=== PATIENT | female | born 1935 | race Caucasian/White ===

== ENCOUNTER → 2016-08-25 | Outpatient (CLI) | payer MEDICARE, BC ==
[~2016-08-25] MED LIST: CITR500T PO; ESTR.3 PO; GABA300C3 PO; LEVO75TA3 PO; LIPI10TA PO; NAME5TAB2 PO; TAB-TAB PO; VESI5TAB PO; VITA400C58 PO
[2016-08-25 15:42] LABS: BASOPHIL % 0.8 % (0.0-2.0); EOSINOPHIL # 0.2 TH/MM3 (0-0.4); EOSINOPHIL % 3.9 % (0.0-4.0); HEMATOCRIT 42.8 % (35.0-46.0); HEMO FLAGS DIFF FINAL; LYMPH % 22.3 % (9.0-44.0); LYMPHOCYTE # 1.1 TH/MM3 (1.0-4.8); MEAN CELL VOLUME 93.7 FL (80.0-100.0); MEAN CORPUSCULAR HEMOGLOBIN 31.4 PG (27.0-34.0); MEAN CORPUSCULAR HGB CONC 33.5 % (32.0-36.0); MONO % 10.6 % (0.0-8.0); NEUT % 62.4 % (16.0-70.0); PLATELET COUNT 217 TH/MM3 (150-450); RED BLOOD COUNT 4.57 MIL/MM3 (4.00-5.30); WHITE BLOOD COUNT 4.8 TH/MM3 (4.0-11.0)
[2016-08-25 15:48] LABS: ANION GAP 9 MEQ/L (5-15); AST (GOT) 23 U/L (15-37); BICARBONATE 23.7 MEQ/L (21.0-32.0); BLOOD UREA NITROGEN 12 MG/DL (7-18); CHLORIDE 110 MEQ/L (98-107); GLOMERULAR FILTRATION RATE 67 ML/MIN (>89); GLUCOSE,FASTING 82 MG/DL (74-99); SODIUM (NA) 143 MEQ/L (136-145)
[2016-08-25 15:58] LABS: ALKALINE PHOSPHATASE 52 U/L (45-117); ALT (GPT) 38 U/L (10-53); HDL CHOLESTEROL 69.1 MG/DL (40.0-60.0); LDL CHOLESTEROL 120 MG/DL (0-99); TOTAL BILIRUBIN ADULT 0.9 MG/DL (0.2-1.0)
== END ==
LOC: PLAB 11:19
PROVIDERS: ATTEND Family Medicine
DX: E03.9 Hypothyroidism, unspecified (principal)
CPT/HCPCS: 36415; 80053; 80061; 84443; 85025

== ENCOUNTER → 2016-11-28 | Outpatient (CLI) | payer MEDICARE, BC ==
[2016-11-28 15:56] LABS: ANION GAP 8 MEQ/L (5-15); AST (GOT) 25 U/L (15-37); BICARBONATE 25.6 MEQ/L (21.0-32.0); BLOOD UREA NITROGEN 18 MG/DL (7-18); CHLORIDE 110 MEQ/L (98-107); GLOMERULAR FILTRATION RATE 76 ML/MIN (>89); GLUCOSE,FASTING 86 MG/DL (74-99); POTASSIUM 4.2 MEQ/L (3.5-5.1); SODIUM (NA) 144 MEQ/L (136-145)
[2016-11-28 15:59] LABS: AUTOMATED NEUTROPHIL # 3.1 TH/MM3 (1.8-7.7); BASOPHIL % 0.7 % (0.0-2.0); EOSINOPHIL # 0.2 TH/MM3 (0-0.4); EOSINOPHIL % 3.7 % (0.0-4.0); HEMATOCRIT 41.9 % (35.0-46.0); HEMO FLAGS DIFF FINAL; LYMPH % 22.6 % (9.0-44.0); LYMPHOCYTE # 1.1 TH/MM3 (1.0-4.8); MEAN CELL VOLUME 92.3 FL (80.0-100.0); MEAN CORPUSCULAR HEMOGLOBIN 31.8 PG (27.0-34.0); MEAN CORPUSCULAR HGB CONC 34.4 % (32.0-36.0); MONO % 11.3 % (0.0-8.0); NEUT % 61.7 % (16.0-70.0); PLATELET COUNT 209 TH/MM3 (150-450); RED BLOOD COUNT 4.54 MIL/MM3 (4.00-5.30); RED CELL DISTRIBUTION WIDTH 13.1 % (11.6-17.2)
[2016-11-28 16:06] LABS: ALKALINE PHOSPHATASE 55 U/L (45-117); ALT (GPT) 42 U/L (10-53); HDL CHOLESTEROL 62.8 MG/DL (40.0-60.0); LDL CHOLESTEROL 123 MG/DL (0-99); TOTAL BILIRUBIN ADULT 1.1 MG/DL (0.2-1.0)
== END ==
LOC: PLAB 11:46
PROVIDERS: ATTEND Family Medicine
DX: E03.9 Hypothyroidism, unspecified (principal); I10 Essential (primary) hypertension; E78.5 Hyperlipidemia, unspecified
CPT/HCPCS: 36415; 80053; 80061; 84443; 85025

== ENCOUNTER 2017-05-28 15:04 | Emergency (ER) | payer MEDICARE, BC ==
[~2017-05-28] VITALS: Ht 165.1 cm; Wt 73.5 kg
[2017-05-28 15:10] VITALS: BP 171/74; PULSE 78; RESP 18; TEMP 98.4; O2SAT 90
[2017-05-28] MEDS ORDERED: VITA100036 PO (15:28)
[2017-05-28] MEDS ORDERED: NAME5TAB2 PO (15:28)
[2017-05-28] MEDS ORDERED: VITD400 PO (15:28)
[2017-05-28] MEDS ORDERED: MULTTAB67 PO (15:28)
[2017-05-28] MEDS ORDERED: ATOR10TA15 PO (15:28)
[2017-05-28] MEDS ORDERED: ESTR.3 PO (15:28)
[2017-05-28] MEDS ORDERED: GABA300C5 PO (15:28)
[2017-05-28] MEDS ORDERED: VESI5TAB PO (15:28)
[2017-05-28] MEDS ORDERED: LEVO75TA3 PO (15:28)
--- NOTE | 2017-05-28 15:28 | PD ---
HPI Chief Complaint: Fall Time Seen by Provider: 15:23 Travel History International Travel<30 days: No Contact w/Intl Traveler<30days: No Traveled to known affect area: No History of Present Illness HPI Patient presents with complaints of right hip pain. 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 Participating in physical therapy for the last 5 years for balance and gait training. Normally uses a walker. Yesterday she was walking across the room without her walker holding a plate in her hand when her right hip didn't feel right. She fell to her knees. Denies any head trauma or loss of consciousness. Denies syncope. Reports pain on weightbearing now. PFSH Past Medical History Arthritis: Yes Depression: Yes (OCASSIONAL) Cancer: No Cardiovascular Problems: No High Cholesterol: Yes Diabetes: No Diminished Hearing: No Endocrine: Yes Genitourinary: Yes (INCONTINENCE) Hepatitis: No Hiatal Hernia: No Hypertension: Yes Immune Disorder: No Implanted Vascular Access Dvce: Yes Musculoskeletal: Yes (ARTHRITIS, SP. STENOSIS) Neurologic: Yes (VERTIGO, neuropathy pain) Psychiatric: Yes (CLAUSTRAPHOBIA, PANIC ATTACKS) Reproductive: No Respiratory: No Immunizations Current: Yes Thyroid Disease: Yes (HYPOTHYROID) ?: Not Menopausal: Yes Past Surgical History AICD: No Eye Surgery: Yes (RIGHT CATARACT EXT.) Genitourinary Surgery: Yes (FAILED BLADDER SUSP. (X2)) Gynecologic Surgery: Yes (HYSTERECTOMY) Hysterectomy: Yes (APPOX 20 YEARS AGO) Joint Replacement: Yes (bilat hip ) Oral Surgery: Yes (T & A) Pacemaker: No Tonsillectomy: Yes Tympanostomy Tube: Yes Other Surgery: Yes Social History Alcohol Use: Yes (occas. wine once a week) Tobacco Use: No Substance Use: No Allergies-Medications (Allergen,Severity, Reaction): Coded Allergies: adhesive (Unverified Allergy, Severe, SWELL AND BLISTER SKIN, 05/28/17) venom-honey bee (Unverified Allergy, Severe, 05/28/17) insect venom (Unverified Allergy, Intermediate, 05/28/17) Reported Meds & Prescriptions Reported Meds & Active Scripts Active Reported Multiple Vitamin 1 Tab 1 Tab PO DAILY Vesicare (Solifenacin) 5 Mg Tab 5 Mg PO DAILY Namenda (Memantine) 5 Mg Tab 5 Mg PO BID Levothyroxine (Levothyroxine Sodium) 75 Mcg Tab 75 Mcg PO DAILY Gabapentin 300 Mg Cap 300 Mg PO HS Premarin (Estrogens Conjugated) 0.3 Mg Tab 0.3 Mg PO DAILY Vitamin D3 (Cholecalciferol) 1,000 Unit Cap Unknown Dose PO DAILY Atorvastatin (Atorvastatin Calcium) 10 Mg Tab 10 Mg PO HS Review of Systems General / Constitutional: No: Fever Eyes: No: Visual changes HENT: No: Headaches Cardiovascular: No: Chest Pain or Discomfort Respiratory: No: Shortness of Breath Gastrointestinal: No: Abdominal Pain Genitourinary: No: Dysuria Musculoskeletal: No: Pain Skin: No Rash Neurologic: No: Weakness Psychiatric: No: Depression Endocrine: No: Polydipsia Hematologic/Lymphatic: No: Easy Bruising Physical Exam Narrative GENERAL: Well-nourished, well-developed patient. SKIN: Focused skin assessment warm/dry. HEAD: Normocephalic. EYES: No scleral icterus. No injection or drainage. NECK: Supple, trachea midline. No JVD or lymphadenopathy. CARDIOVASCULAR: Regular rate and rhythm without murmurs, gallops, or rubs. RESPIRATORY: Breath sounds equal bilaterally. No accessory muscle use. GASTROINTESTINAL: Abdomen soft, non-tender, nondistended. MUSCULOSKELETAL: No cyanosis, or edema. BACK: Nontender without obvious deformity. No CVA tenderness. Examination of the right hip reveals discomfort on flexion extension internal and external rotation, no ecchymosis or swelling noted about the hip Data Data Last Documented VS Vital Signs Date Time Temp Pulse Resp B/P (MAP) Pulse Ox O2 Delivery O2 Flow Rate FiO2 05/28/17 16:39 05/28/17 16:15 63 18 97 Room Air 05/28/17 15:10 98.4 Orders Orders Hip, Uni(Ap&Lat) W Ap Pelvis (05/28/17 ) Acetaminophen (Tylenol) (05/28/17 16:30) MDM Medical Decision Making Medical Screen Exam Complete: Yes Emergency Medical Condition: Yes Differential Diagnosis Hip strain, hip fracture, hip contusion, inguinal strain Narrative Course Assessment and plan discussed with patient at bedside. Physician Communication Physician Communication Case discussed and care transferred to Bebo Carver MD May 28, 2017 15:27
--- NOTE | 2017-05-28 16:10 | RADRPT ---
EXAM DATE/TIME: 05/28/2017 15:41 [facility] COMPARISON: HIP RIGHT (AP&LAT 2/3VWS) W AP PELVIS, May 04, 2016, 14:11. INDICATIONS : Fell several days ago, increasing right hip area pain MEDICAL HISTORY : Pelvis fracture, bilateral hip fractures SURGICAL HISTORY : Bilateral hip replacements ENCOUNTER: Initial ACUITY: 4 - 6 days PAIN SCORE: 10/10 LOCATION: Right hip FINDINGS: AP view of the pelvis demonstrates bilateral total hip arthroplasties. The bone density is decreased. The hardware is intact bilaterally, without fracture or dislocation. CONCLUSION: No acute disease. Edenilson Wolfe MD on May 28, 2017 at 16:09 Board Certified Radiologist. This report was verified electronically.
[2017-05-28 16:15] VITALS: BP 170/90; PULSE 63; RESP 18; O2SAT 97
--- NOTE | 2017-05-28 16:20 | PD ---
Physical Exam Date Seen by Provider: May 28, 2017 Time Seen by Provider: 16:18 Narrative This 81-year-old female had a fall on Monday and seen initially by Dr. Alas who ordered the patient is having bilateral total hip arthroplasties. Data Data Last Documented VS Vital Signs Date Time Temp Pulse Resp B/P (MAP) Pulse Ox O2 Delivery O2 Flow Rate FiO2 05/28/17 16:15 63 18 170/90 (116) 97 Room Air 05/28/17 15:10 98.4 Orders Orders Hip, Uni(Ap&Lat) W Ap Pelvis (05/28/17 ) Acetaminophen (Tylenol) (05/28/17 16:30) MDM Medical Record Reviewed: Yes Supervised Visit with DENNY: No Differential Diagnosis Differential includes fracture, arthroplasty loosening, fractured pelvis Narrative Course X-ray right hip with pelvis is negative Diagnosis Primary Impression: Contusion of hip Qualified Codes: S70.01XA - Contusion of right hip, initial encounter Additional Instruction: Take Tylenol for pain, follow-up with your own medical doctor Disposition: 01 DISCHARGE HOME Condition: Stable Kenneth Cardenas MD May 28, 2017 16:20
[2017-05-28] MEDS ORDERED: ACETAMINOPHEN 325 MG TAB PO ONE (16:30)
== END 2017-05-28 16:40 | disposition home or self-care (01) ==
LOC: PHED 15:04
DX: S70.01XA Contusion of right hip, initial encounter (principal); I10 Essential (primary) hypertension; E03.9 Hypothyroidism, unspecified; E78.00 Pure hypercholesterolemia, unspecified; Z96.643 Presence of artificial hip joint, bilateral; Z87.39 Personal history of other diseases of the musculoskeletal system and connective tissue; Z86.59 Personal history of other mental and behavioral disorders; Z87.448 Personal history of other diseases of urinary system; Z86.69 Personal history of other diseases of the nervous system and sense organs; W18.39XA Other fall on same level, initial encounter
CPT/HCPCS: 73502; 99283

== ENCOUNTER 2017-07-31 16:25 | Observation (INO) | payer MEDICARE, BC ==
[~2017-07-31] VITALS: Ht 152.4 cm; Wt 74.6 kg
[~2017-07-31 16:25] MED LIST changes: +ATOR10TA15 PO; +CHOL10008 PO; -CITR500T PO; -GABA300C3 PO; +GABA300C5 PO; -LIPI10TA PO; +MULTTAB67 PO; -TAB-TAB PO; -VESI5TAB PO; +VESI5TAB2 PO; -VITA400C58 PO
[2017-07-31 16:30] VITALS: BP 179/81; PULSE 63; RESP 16; TEMP 97.4; O2SAT 98
[2017-07-31] MEDS ORDERED: SODIUM CHLORIDE 0.9% FLUSH 10 ML FLUSH IVF PRN (16:45)
--- NOTE | 2017-07-31 16:49 | PD ---
HPI Chief Complaint: Dizziness Time Seen by Provider: 16:44 Travel History International Travel<30 days: No Contact w/Intl Traveler<30days: No Traveled to known affect area: No History of Present Illness HPI 81-year-old female patient presents to the ER today, had an episode of dizziness , felt like she was going to pass out, started suddenly, was having slurred speech or in the episode and felt generally weak. She denies any chest pains, shortness of breath, or any other symptoms. She denies any recent fevers, vomiting, diarrhea, or other issues. Modifying Factors: None Associated Signs & Symptoms: Near-syncope, slurred speech, weakness Risk Factors: Elderly PFSH Past Medical History Arthritis: Yes Depression: Yes (OCASSIONAL) Cancer: No Cardiovascular Problems: No High Cholesterol: Yes Diabetes: No Diminished Hearing: No Endocrine: Yes Genitourinary: Yes (INCONTINENCE) Hepatitis: No Hiatal Hernia: No Hypertension: Yes Immune Disorder: No Implanted Vascular Access Dvce: Yes Musculoskeletal: Yes (ARTHRITIS, SP. STENOSIS) Neurologic: Yes (VERTIGO, neuropathy pain) Psychiatric: Yes (CLAUSTRAPHOBIA, PANIC ATTACKS) Reproductive: No Respiratory: No Immunizations Current: Yes Thyroid Disease: Yes (HYPOTHYROID) Menopausal: Yes Past Surgical History AICD: No Eye Surgery: Yes (RIGHT CATARACT EXT.) Genitourinary Surgery: Yes (FAILED BLADDER SUSP. (X2)) Gynecologic Surgery: Yes (HYSTERECTOMY) Hysterectomy: Yes (APPOX 20 YEARS AGO) Joint Replacement: Yes (bilat hip ) Oral Surgery: Yes (T & A) Pacemaker: No Tonsillectomy: Yes Tympanostomy Tube: Yes Other Surgery: Yes Social History Alcohol Use: Yes (occas. wine once a week) Tobacco Use: No Substance Use: No Allergies-Medications (Allergen,Severity, Reaction): Coded Allergies: adhesive (Unverified Allergy, Severe, SWELL AND BLISTER SKIN, 07/31/17) venom-honey bee (Unverified Allergy, Severe, 07/31/17) insect venom (Unverified Allergy, Intermediate, 07/31/17) Reported Meds & Prescriptions Reported Meds & Active Scripts Active Reported Fiber 6 Tablet (Bran/Gum/Fib/Shilpi/Psyl/Kelp/Pec) 1,000 Mg Tablet 1 Tab PO DAILY Multiple Vitamin 1 Tab 1 Tab PO DAILY Vesicare (Solifenacin) 5 Mg Tab 5 Mg PO DAILY Namenda (Memantine) 5 Mg Tab 5 Mg PO BID Levothyroxine (Levothyroxine Sodium) 75 Mcg Tab 75 Mcg PO DAILY Gabapentin 300 Mg Cap 300 Mg PO HS Vitamin D3 (Cholecalciferol) 1,000 Unit Cap Unknown Dose PO DAILY Atorvastatin (Atorvastatin Calcium) 10 Mg Tab 10 Mg PO HS Review of Systems Except as stated in HPI: all other systems reviewed are Neg Physical Exam Narrative GENERAL: Pleasant elderly white female patient currently in no acute distress. Awake and oriented 3. SKIN: Focused skin assessment warm/dry. HEAD: Atraumatic. Normocephalic. EYES: Pupils equal and round. No scleral icterus. No injection or drainage. ENT: No nasal bleeding or discharge. Mucous membranes pink and moist. NECK: Trachea midline. No JVD. CARDIOVASCULAR: Regular rate and rhythm. No murmur appreciated. RESPIRATORY: No accessory muscle use. Clear to auscultation. Breath sounds equal bilaterally. GASTROINTESTINAL: Abdomen soft, non-tender, nondistended. Hepatic and splenic margins not palpable. MUSCULOSKELETAL: No obvious deformities. No clubbing. No cyanosis. No edema. NEUROLOGICAL: Awake and alert. No obvious cranial nerve deficits. Motor grossly within normal limits. Normal speech. No pronator drift. PSYCHIATRIC: Appropriate mood and affect; insight and judgment normal. Data Data Last Documented VS Vital Signs Date Time Temp Pulse Resp B/P (MAP) Pulse Ox O2 Delivery O2 Flow Rate FiO2 07/31/17 17:37 62 18 149/77 (101) 96 Room Air 07/31/17 16:30 97.4 Orders Orders Electrocardiogram (07/31/17 16:44) Complete Blood Count With Diff (07/31/17 16:44) Comprehensive Metabolic Panel (07/31/17 16:44) Magnesium (Mg) (07/31/17 16:44) Ckmb (Isoenzyme) Profile (07/31/17 16:44) Troponin I (07/31/17 16:44) Act Partial Throm Time (Ptt) (07/31/17 16:44) Prothrombin Time / Inr (Pt) (07/31/17 16:44) Urinalysis - C+S If Indicated (07/31/17 16:44) Chest, Single Ap (07/31/17 16:44) Ct Brain W/O Iv Contrast(Rout) (07/31/17 16:44) Ecg Monitoring (07/31/17 16:44) Iv Access Insert/Monitor (07/31/17 16:44) Oximetry (07/31/17 16:44) Sodium Chloride 0.9% Flush (Ns Flush) (07/31/17 16:45) Aspirin (Aspirin) (07/31/17 18:00) Admit Order (Ed Use Only) (07/31/17 18:14) Labs Laboratory Tests Test 07/31/17 16:45 07/31/17 17:00 Urine Color YELLOW Urine Turbidity CLEAR Urine pH 5.5 Urine Specific [place] 1.009 Urine Protein NEG mg/dL Urine Glucose (UA) NEG mg/dL Urine Ketones NEG mg/dL Urine Occult Blood NEG Urine Nitrite NEG Urine Bilirubin NEG Urine Leukocyte Esterase NEG Urine WBC 0-2 /hpf Urine Squamous Epithelial Cells 6-8 /hpf Microscopic Urinalysis Comment CULT NOT INDICATED White Blood Count 5.4 TH/MM3 Red Blood Count 4.75 MIL/MM3 Hemoglobin 14.2 GM/DL Hematocrit 42.4 % Mean Corpuscular Volume 89.3 FL Mean Corpuscular Hemoglobin 30.0 PG Mean Corpuscular Hemoglobin Concent 33.6 % Red Cell Distribution Width 12.4 % Platelet Count 213 TH/MM3 Mean Platelet Volume 9.0 FL Neutrophils (%) (Auto) 61.8 % Lymphocytes (%) (Auto) 24.6 % Monocytes (%) (Auto) 9.0 % Eosinophils (%) (Auto) 4.0 % Basophils (%) (Auto) 0.6 % Neutrophils # (Auto) 3.4 TH/MM3 Lymphocytes # (Auto) 1.3 TH/MM3 Monocytes # (Auto) 0.5 TH/MM3 Eosinophils # (Auto) 0.2 TH/MM3 Basophils # (Auto) 0.0 TH/MM3 CBC Comment DIFF FINAL Differential Comment Prothrombin Time 9.6 SEC Prothromb Time International Ratio 0.9 RATIO Activated Partial Thromboplast Time 23.2 SEC Blood Urea Nitrogen 21 MG/DL Creatinine 0.69 MG/DL Random Glucose 81 MG/DL Total Protein 7.3 GM/DL Albumin 3.6 GM/DL Calcium Level 9.4 MG/DL Magnesium Level 2.1 MG/DL Alkaline Phosphatase 72 U/L Aspartate Amino Transf (AST/SGOT) 24 U/L Alanine Aminotransferase (ALT/SGPT) 30 U/L Total Bilirubin 0.7 MG/DL Sodium Level 140 MEQ/L Potassium Level 3.9 MEQ/L Chloride Level 106 MEQ/L Carbon Dioxide Level 24.8 MEQ/L Anion Gap 9 MEQ/L Estimat Glomerular Filtration Rate 82 ML/MIN Total Creatine Kinase 44 U/L Troponin I LESS THAN 0.02 NG/ML MDM Medical Decision Making Medical Screen Exam Complete: Yes Emergency Medical Condition: Yes Medical Record Reviewed: Yes Interpretation(s) EKG shows NSR, no ST elevation or depression, and no arrhythmias. No significant T-wave inversions. Laboratory Tests Test 07/31/17 16:45 07/31/17 17:00 Urine Squamous Epithelial Cells 6-8 /hpf (0-5) Monocytes (%) (Auto) 9.0 % (0.0-8.0) Prothrombin Time 9.6 SEC (9.8-11.6) Activated Partial Thromboplast Time 23.2 SEC (24.3-30.1) Blood Urea Nitrogen 21 MG/DL (7-18) Estimat Glomerular Filtration Rate 82 ML/MIN (>89) Troponin I LESS THAN 0.02 NG/ML Last [address] 07/31/17 1644 Signed Impressions: Service Date/Time: Monday, July 31, 2017 17:02 - CONCLUSION: 1. Stable ventriculomegaly 2. No evidence of acute infarct, hemorrhage, mass or edema. Kaden Pérez MD Chest X-Ray 07/31/17 1644 Signed Impressions: Service Date/Time: Monday, July 31, 2017 16:50 - CONCLUSION: No acute disease. Kaden Pérez MD Differential Diagnosis Near-syncope, slurred speech, general weakness: Orthostasis versus dehydration versus metabolic issues versus dysrhythmias versus TIA/CVA Narrative Course CAT scan did not show any signs of acute intracranial issues. Lab work was unremarkable. Patient has no focal neurological deficits on evaluation by me in the ER. Aspirin was given. My plan would be to admit her for further evaluation of TIA. Case is discussed with Dr. Chambers for admission. Diagnosis Primary Impression: TIA (transient ischemic attack) Admitting Information Admitting Physician Requests: Admit Walter Kyle MD Jul 31, 2017 16:49
--- NOTE | 2017-07-31 17:11 | RADRPT ---
EXAM DATE/TIME: 07/31/2017 16:50 [facility] COMPARISON: No previous studies available for comparison. INDICATIONS : Weakness, near syncopal episode. MEDICAL HISTORY : Hypertension. SURGICAL HISTORY : None. ENCOUNTER: Initial ACUITY: 1 day PAIN SCORE: 0/10 LOCATION: Bilateral chest FINDINGS: A single view of the chest demonstrates the lungs to be symmetrically aerated without evidence of mas s, infiltrate or effusion. The cardiomediastinal contours are unremarkable. Osseous structures are intact. CONCLUSION: No acute disease. Kaden Pérez MD on July 31, 2017 at 17:10 Board Certified Radiologist. This report was verified electronically.
[2017-07-31 17:12] LABS: WHITE BLOOD COUNT 5.4 TH/MM3 (4.0-11.0)
[2017-07-31 17:13] LABS: AUTOMATED NEUTROPHIL # 3.4 TH/MM3 (1.8-7.7); BASOPHIL % 0.6 % (0.0-2.0); EOSINOPHIL # 0.2 TH/MM3 (0-0.4); HEMATOCRIT 42.4 % (35.0-46.0); HEMO FLAGS DIFF FINAL; LYMPH % 24.6 % (9.0-44.0); LYMPHOCYTE # 1.3 TH/MM3 (1.0-4.8); MEAN CELL VOLUME 89.3 FL (80.0-100.0); MEAN CORPUSCULAR HGB CONC 33.6 % (32.0-36.0); NEUT % 61.8 % (16.0-70.0); PLATELET COUNT 213 TH/MM3 (150-450); RED BLOOD COUNT 4.75 MIL/MM3 (4.00-5.30); RED CELL DISTRIBUTION WIDTH 12.4 % (11.6-17.2)
[2017-07-31 17:16] LABS: BLOOD, URINE NEG (NEG); GLUCOSE,URINE NEG (NEG); KETONE, URINE NEG (NEG); NITRITE,URINE NEG (NEG); PH, URINE 5.5 (5.0-8.5)
--- NOTE | 2017-07-31 17:21 | RADRPT ---
EXAM DATE/TIME: 07/31/2017 17:02 [facility] COMPARISON: CT BRAIN W/O CONTRAST, April 04, 2010, 12:45. INDICATIONS : Hypertension, dizziness and speaking difficulty. RADIATION DOSE: 55.68 CTDIvol (mGy) MEDICAL HISTORY : Hypercholesterolemia. Hypothyroidism. Hypertension. SURGICAL HISTORY : Tonsillectomy. Hysterectomy.Orthopedic surgery. ENCOUNTER: Initial ACUITY: 1 day PAIN SCALE: 0/10 LOCATION: cranial TECHNIQUE: Multiple contiguous axial images were obtained of the head. Using automated exposure control and adj ustment of the mA and/or kV according to patient size, radiation dose was kept as low as reasonably a chievable to obtain optimal diagnostic quality images. DICOM format image data is available electro nically for review and comparison. FINDINGS: CEREBRUM: Screws are enlarged but remains stable. There are no findings characteristic of an acute infarct, hem orrhage, mass or edema. POSTERIOR FOSSA: The cerebellum and brainstem are intact. The 4th ventricle is midline. The cerebellopontine angle i s unremarkable. EXTRACRANIAL: The visualized portion of the orbits is intact. SKULL: The calvaria is intact. No evidence of skull fracture. CONCLUSION: 1. Stable ventriculomegaly 2. No evidence of acute infarct, hemorrhage, mass or edema. Kaden Pérez MD on July 31, 2017 at 17:18 Board Certified Radiologist. This report was verified electronically.
[2017-07-31 17:23] LABS: CHLORIDE 106 MEQ/L (98-107); POTASSIUM 3.9 MEQ/L (3.5-5.1); SODIUM (NA) 140 MEQ/L (136-145)
[2017-07-31 17:27] LABS: ANION GAP 9 MEQ/L (5-15); BICARBONATE 24.8 MEQ/L (21.0-32.0); BLOOD UREA NITROGEN 21 MG/DL (7-18); MAGNESIUM 2.1 MG/DL (1.5-2.5)
[2017-07-31 17:29] LABS: APTT (PATIENT) 23.2 SEC (24.3-30.1); INTERNATIONAL NORMALIZED RATIO 0.9 RATIO; PROTHROMBIN TIME - PATIENT 9.6 SEC (9.8-11.6)
[2017-07-31] MEDS ORDERED: BRAN1000 PO (17:29)
[2017-07-31 17:30] LABS: ALT (GPT) 30 U/L (10-53); AST (GOT) 24 U/L (15-37); GLOMERULAR FILTRATION RATE 82 ML/MIN (>89)
[2017-07-31 17:32] LABS: TOTAL BILIRUBIN ADULT 0.7 MG/DL (0.2-1.0)
[2017-07-31 17:33] LABS: ALKALINE PHOSPHATASE 72 U/L (45-117)
[2017-07-31 17:35] VITALS: RESP 18; O2SAT 95
[2017-07-31 17:37] VITALS: BP 149/77; PULSE 62; RESP 18; O2SAT 96
[2017-07-31 17:40] LABS: URINE COLOR YELLOW (YELLW/STRAW)
[2017-07-31 17:41] LABS: COMMENT (UR) CULT NOT INDICATED; CULTURE IF INDICATED CULT NOT INDICATED; WBC, URINE 0-2 /hpf (0-5)
[2017-07-31 17:47] LABS: CREATINE KINASE 44 U/L (26-192)
[2017-07-31] MEDS ORDERED: ASPIRIN 325 MG TAB PO ONE (18:00)
[2017-07-31 18:35] VITALS: BP 167/73; PULSE 64; RESP 18; O2SAT 98
[2017-07-31 19:04] VITALS: BP 174/73; PULSE 68; RESP 16; O2SAT 98
[2017-07-31 20:00] VITALS: BP 180/80; PULSE 64; RESP 18; TEMP 98.5; O2SAT 95
[2017-07-31] MEDS ORDERED: ENALAPRILAT 1.25 MG/ML VIAL IV PUSH PRN (20:00)
[2017-07-31] MEDS: MEMANTINE HCL 5 MG TAB PO SCH (20:59)
[2017-07-31] MEDS ORDERED: GABAPENTIN 300 MG CAP PO SCH (21:00)
[2017-07-31] MEDS ORDERED: ATORVASTATIN 40 MG TAB PO SCH (21:00)
[2017-08-01] VITALS: BP 141/67; PULSE 61; RESP 16; TEMP 97.9; O2SAT 95
[2017-08-01 04:00] VITALS: BP 163/75; PULSE 69; RESP 16; TEMP 98; O2SAT 99
[2017-08-01] MEDS ORDERED: LEVOTHYROXINE SODIUM 75 MCG TAB PO SCH (06:00)
[2017-08-01 08:00] VITALS: BP 181/77; PULSE 64; RESP 14; TEMP 96; O2SAT 93; O2SAT 94
[2017-08-01 08:05] VITALS: PULSE 77
[2017-08-01] MEDS ORDERED: TOLTERODINE TARTRATE 2 MG CAP LA PO SCH (09:00)
[2017-08-01] MEDS: MEMANTINE HCL 5 MG TAB PO SCH (09:31)
--- NOTE | 2017-08-01 09:41 | HHI.HP ---
[facility] Tung Pack MD Admission Diagnosis TIA Diagnoses: (1) TIA (transient ischemic attack) Chief Complaint: Difficulty speaking Travel History International Travel<30 Days: No Contact w/Intl Traveler <30 Da: No Traveled to Known Affected Are: No History of Present Illness 81-year-old white female being admitted for suspected transient ischemic attack. Patient was in her usual state of health yesterday at her urologist's office when she experienced a sudden onset of difficulty speaking. She says her speech was slurred and that the warts cannot come out right. She says she was aware of what was going on and decided come to the emergency department. She denies any acute visual changes, difficulty swallowing with her most recent meals; no acute motor deficits in her arms or legs or any new onset numbness or tingling. She says she has chronic gait issues and that weakness will vary from 1 lower extremity to the other on the day by day basis and uses a cane in her right arm. Patient denies any changes in her acute urinary issues, has chronic urinary problems and is on medications for this. Patient does admit that she deliberately we will not take certain medications from time to time at her own discretion because she feels like "someone do more harm than benefit" but she will not do this under the care of her providers. " She does not take any aspirin on a daily basis but she does admit to taking 10 mg of Lipitor. The patient states that by the time she came to the emergency room her symptoms were almost completely resolved. Review of Systems Except as stated in HPI: all other systems reviewed are Neg Past Family Social History Past Medical History Urinary issues High blood pressure Arthritis Panic attacks, claustrophobia, spinal stenosis, vertigo Past Surgical History RIGHT CATARACT FAILED BLADDER SUSP. (X2) HYSTERECTOMY Hysterectomy Joint Replacement - bilat hip Oral Surgery: T & A Allergies: Coded Allergies: adhesive (Unverified Allergy, Severe, SWELL AND BLISTER SKIN, 07/31/17) venom-honey bee (Unverified Allergy, Severe, 07/31/17) insect venom (Unverified Allergy, Intermediate, 07/31/17) Family History Strokes and heart disease in the family Social History Denies smoking or using illicit drugs in the past. Says she lives alone Physical Exam Vital Signs Vital Signs Date Time Temp Pulse Resp B/P (MAP) Pulse Ox O2 Delivery O2 Flow Rate FiO2 08/01/17 04:00 98.0 69 16 163/75 (104) 99 08/01/17 00:00 97.9 61 16 141/67 (91) 95 07/31/17 20:42 07/31/17 20:00 98.5 64 18 180/80 (113) 95 07/31/17 19:04 68 16 174/73 (106) 98 Room Air 07/31/17 18:35 64 18 167/73 (104) 98 Room Air 07/31/17 17:37 62 18 149/77 (101) 96 Room Air 07/31/17 17:35 18 95 Room Air 07/31/17 16:30 97.4 63 16 179/81 (113) 98 Physical Exam VS: afebrile GENERAL: Elderly white female well-nourished for her age, no acute distress SKIN: Warm and dry. EYES: Pupils equal and round. No scleral icterus. No injection or drainage. ENT: No nasal bleeding or discharge. Mucous membranes pink and moist. CARDIOVASCULAR: Regular rate and rhythm. no murmurs RESPIRATORY: No accessory muscle use. Clear to auscultation. Breath sounds equal bilaterally. GASTROINTESTINAL: Abdomen soft, non-tender, nondistended. Extremities: No clubbing, cyanosis, or edema. No obvious deformities. MUSCULOSKELETAL: Extremities without clubbing, cyanosis, or edema. No obvious deformities. grossly intact ROM with 5/5 strength in upper and lower extremities proximally NEUROLOGICAL: Awake and alert. No obvious cranial nerve deficits. No facial droop nor slurred speech noted. Patellar reflexes are 2+. Intact sensation to pinprick in bilateral lower extremities as well as upper extremities and face. PSYCHIATRIC: Appropriate mood and affect; insight and judgment normal. Laboratory Laboratory Tests Test 07/31/17 16:45 07/31/17 17:00 Urine Color YELLOW Urine Turbidity CLEAR Urine pH 5.5 Urine Specific [place] 1.009 Urine Protein NEG Urine Glucose (UA) NEG Urine Ketones NEG Urine Occult Blood NEG Urine Nitrite NEG Urine Bilirubin NEG Urine Leukocyte Esterase NEG Urine WBC 0-2 Urine Squamous Epithelial Cells 6-8 Microscopic Urinalysis Comment CULT NOT INDICATED White Blood Count 5.4 Red Blood Count 4.75 Hemoglobin 14.2 Hematocrit 42.4 Mean Corpuscular Volume 89.3 Mean Corpuscular Hemoglobin 30.0 Mean Corpuscular Hemoglobin Concent 33.6 Red Cell Distribution Width 12.4 Platelet Count 213 Mean Platelet Volume 9.0 Neutrophils (%) (Auto) 61.8 Lymphocytes (%) (Auto) 24.6 Monocytes (%) (Auto) 9.0 Eosinophils (%) (Auto) 4.0 Basophils (%) (Auto) 0.6 Neutrophils # (Auto) 3.4 Lymphocytes # (Auto) 1.3 Monocytes # (Auto) 0.5 Eosinophils # (Auto) 0.2 Basophils # (Auto) 0.0 CBC Comment DIFF FINAL Differential Comment Prothrombin Time 9.6 Prothromb Time International Ratio 0.9 Activated Partial Thromboplast Time 23.2 Blood Urea Nitrogen 21 Creatinine 0.69 Random Glucose 81 Total Protein 7.3 Albumin 3.6 Calcium Level 9.4 Magnesium Level 2.1 Alkaline Phosphatase 72 Aspartate Amino Transf (AST/SGOT) 24 Alanine Aminotransferase (ALT/SGPT) 30 Total Bilirubin 0.7 Sodium Level 140 Potassium Level 3.9 Chloride Level 106 Carbon Dioxide Level 24.8 Anion Gap 9 Estimat Glomerular Filtration Rate 82 Total Creatine Kinase 44 Troponin I LESS THAN 0.02 Result Diagram: 07/31/17 1700 07/31/17 1700 Imaging Last Impressions Head CT [id number]/31/171643 Signed Impressions: Service Date/Time: Monday, July 31, 2017 17:02 - CONCLUSION: 1. Stable ventriculomegaly 2. No evidence of acute infarct, hemorrhage, mass or edema. Kaden Pérez MD Chest X-Ray [id number]/31/171643 Signed Impressions: Service Date/Time: Monday, July 31, 2017 16:50 - CONCLUSION: No acute disease. Kaden Pérez MD Caprini VTE Risk Assessment Caprini VTE Risk Assessment: Mod/High Risk (score >= 2) Caprini Risk Assessment Model Point Value = 1 Point Value = 2 Point Value = 3 Point Value = 5 Age 41-60 Minor surgery BMI > 25 kg/m2 Swollen legs Varicose veins or History of unexplained or recurrent spontaneous Oral contraceptives or hormone replacement Sepsis (< 1 month) Serious lung disease, including pneumonia (< 1 month) Abnormal pulmonary function Acute myocardial infarction Congestive heart failure (< 1 month) History of inflammatory bowel disease Medical patient at bed rest Age 61-74 Arthroscopic surgery Major open surgery (> 45 min) Laparoscopic surgery (> 45 min) Malignancy Confined to bed (> 72 hours) Immobilizing plaster cast Central venous access Age >= 75 History of VTE Family history of VTE Factor V Leiden Prothrombin [id number] Lupus anticoagulant Anticardiolipin antibodies Elevated serum homocysteine Heparin-induced thrombocytopenia Other congenital or acquired thrombophilia Stroke (< 1 month) Elective arthroplasty Hip, pelvis, or leg fracture Acute spinal cord injury (< 1 month) Prophylaxis Regimen Total Risk Factor Score Risk Level Prophylaxis Regimen 0-1 Low Early ambulation 2 Moderate Order ONE of the following: *Sequential Compression Device (SCD) *Heparin 5000 units SQ BID 3-4 Higher Order ONE of the following medications: *Heparin 5000 units SQ TID *Enoxaparin/Lovenox 40 mg SQ daily (WT < 150 kg, CrCl > 30 mL/min) *Enoxaparin/Lovenox 30 mg SQ daily (WT < 150 kg, CrCl > 10-29 mL/min) *Enoxaparin/Lovenox 30 mg SQ BID (WT < 150 kg, CrCl > 30 mL/min) AND/OR *Sequential Compression Device (SCD) 5 or more Highest Order ONE of the following medications: *Heparin 5000 units SQ TID (Preferred with Epidurals) *Enoxaparin/Lovenox 40 mg SQ daily (WT < 150 kg, CrCl > 30 mL/min) *Enoxaparin/Lovenox 30 mg SQ daily (WT < 150 kg, CrCl > 10-29 mL/min) *Enoxaparin/Lovenox 30 mg SQ BID (WT < 150 kg, CrCl > 30 mL/min) AND *Sequential Compression Device (SCD) Assessment and Plan Assessment and Plan 81-year-old white female being admitted for strokelike symptoms with possible TIA - Continue aspirin, instructed patient that we will increase her Lipitor from 10 to 40 mg - Engage in permissive hypertension - CT head is negative for acute bleed, we'll proceed with MRI, carotid ultrasounds, and echocardiogram - Speech eval and PT eval - telemetry - I independently reviewed the EKG which shows NSR urinary incontinence - home vesicare continue home synthroid, gabapentin, and namenda Lovenox Addendum: MRI, echocardiogram, carotid ultrasounds are unremarkable. Only positive findings that the patient has ventriculomegaly on her MRI which was discussed with neurosurgery; given her lack of clinical symptoms that would go with it was recommended that the patient follow-up with neurology after discharge to further address this. Patient was counseled on the importance of taking her medications including her aspirin and her increased dose of Lipitor. She felt very comfortable about going home and following up with her primary care provider, neurologist, and her physical therapy which she is currently doing as an outpatient. Patient has met maximum benefit from hospitalization and is clinically stable for discharge. Augustine Chambers MD Aug 01, 2017 09:41
[2017-08-01] MEDS ORDERED: LORazepam 2 MG/ML VIAL IV PUSH PRN (09:45)
[2017-08-01] MEDS ORDERED: ASPIRIN 81 MG CHEW TAB PO ONE (10:00)
[2017-08-01] MEDS ORDERED: ENOXAPARIN SODIUM 30 MG/0.3 ML SYRINGE SQ SCH (10:00)
--- NOTE | 2017-08-01 11:26 | RADRPT ---
EXAM DATE/TIME: 08/01/2017 10:32 [facility] COMPARISON: No previous studies available for comparison. INDICATIONS : Transient ischemic attack. MEDICAL HISTORY : Hypothyroidism. Hypercholesterolemia. Arthritis. Bilateral tinnitis. Vertigo. Neuropathy. HTN. Spinal stenosis. Panic attacks. Depression. SURGICAL HISTORY : Tonsillectomy. Hysterectomy. Adenoidectomy. Right cataract extraction. Tympanostomy tube. Right TKR . ORIF right clavicle. Bilateral hip replacements. Bladder suspension. ENCOUNTER: Initial ACUITY: 1 day PAIN SCORE: 4/10 LOCATION: Bilateral neck PEAK SYSTOLIC VELOCITIES (cm/sec): ICA/CCA RATIO: Right: 0.6 Left: 1.1 ICA: Right: 49 Left: 98 CCA: Right: 78 Left: 88 ECA: Right: 79 Left: 91 VERTEBRAL: Right: 59 antegrade Left: 42 antegrade Elevated flow velocities and ICA/CCA ratios have been found to correlate with increased degrees of vessel stenosis, calculated as percentage of diameter relative to a normal segment of distal ICA/CCA FINDINGS: RIGHT CAROTID: No significant stenosis is visualized. The waveforms are within normal limits. LEFT CAROTID: No significant stenosis is visualized. The waveforms are within normal limits. VERTEBRAL ARTERIES: Antegrade flow is seen in both vertebral arteries. MISCELLANEOUS: None. CONCLUSION: 1. Minimal bilateral carotid plaque without significant flow-limiting stenosis. 2. Antegrade vertebral artery flow bilaterally. Baoz Mckeon MD on August 01, 2017 at 11:23 Board Certified Radiologist. This report was verified electronically.
[2017-08-01 12:00] VITALS: BP 135/70; PULSE 62; RESP 12; TEMP 95.7; O2SAT 97
--- NOTE | 2017-08-01 12:45 | RADRPT ---
EXAM DATE/TIME: 08/01/2017 12:11 [facility] COMPARISON: No previous studies available for comparison. INDICATIONS : Slurred speech. Unsteady gait. MEDICAL HISTORY : Arthritis. Hypertension. SURGICAL HISTORY : Hysterectomy. Bilateral hip replacement. ENCOUNTER: Initial ACUITY: 3 day PAIN SCORE: 0/10 LOCATION: head TECHNIQUE: Multiplanar, multisequence MRI of the brain was performed without contrast. FINDINGS: CEREBRUM: Ventriculomegaly suggesting central cerebral atrophy or hydrocephalus. Clinical correlation is recomm ended. No evidence of midline shift, mass lesion, hemorrhage or acute infarction. No extraaxial flui d collections are seen. The pituitary gland and suprasellar cistern are normal in configuration. WHITE MATTER: Mild periventricular and subcortical white matter small vessel ischemic changes are noted bilaterally . POSTERIOR FOSSA: The cerebellum and brainstem are intact. The 4th ventricle is midline. The cerebellopontine angle is unremarkable. The cerebellar tonsils are normal in position. DIFFUSION IMAGING: No focal areas of restricted diffusion are seen. No evidence of acute infarction. EXTRACRANIAL: The visualized portions of the orbits and paranasal sinuses are unremarkable. CONCLUSION: 1. Ventriculomegaly suggesting central cerebral atrophy or hydrocephalus. Clinical correlation is rec ommended. 2. Mild periventricular and subcortical white matter small vessel ischemic changes bilaterally. 3. No acute infarct, acute hemorrhage, mass effect or extra-axial fluid collections. Fredy Zapien MD on August 01, 2017 at 12:41 Board Certified Radiologist. This report was verified electronically.
[2017-08-01] MEDS ORDERED: DOCUSATE SODIUM 50 MG/SENNA 8.6 MG TAB PO SCH (13:15)
--- NOTE | 2017-08-01 14:16 | EKG ---
Date Performed: 07/31/2017 Time Performed: 16:57:10 PTAGE: 81 years EKG: Sinus rhythm POSSIBLE INFERIOR INFARCT, AGE UNDETERMINED INFERIOR Q-WAVES ARE MORE PROMINENT COMPARED TO THE PRIO R TRACING. CLINICAL CORRELATION IS NEEDED. BORDERLINE ECG PREVIOUS TRACING : 01/14/2015 15.17 DOCTOR: Adiel Noble Interpretating Date/Time 08/01/2017 14:15:31
[2017-08-01 15:15] VITALS: PULSE 82
[2017-08-01] MEDS ORDERED: ASPI-516 CHEW (15:45)
[2017-08-01] MEDS ORDERED: ATOR40TA16 PO (15:45)
--- NOTE | 2017-08-01 15:47 | HHI.DCPOC ---
Discharge Care Plan Diagnosis: (1) TIA (transient ischemic attack) (2) Hypothyroidism Goals to Promote Your Health * To prevent worsening of your condition and complications * To maintain your health at the optimal level Directions to Meet Your Goals Take your medications as prescribed Follow your dietary instruction Follow activity as directed Keep your appointments as scheduled Take your immunizations and boosters as scheduled If your symptoms worsen call your PCP, if no PCP go to Urgent Care Center or Emergency Room Smoking is Dangerous to Your Health. Avoid second hand smoke Call the 24-hour hour crisis hotline for domestic abuse at Stacey Garcia Aug 01, 2017 15:47
--- NOTE | 2017-08-01 16:41 | ECHRPT ---
Indication: cva/tia CONCLUSIONS Normal left ventricular size. The left ventricular systolic function is hyperdynamic with an estimated ejection fraction in the ra nge of 65- 70%. Septal hypertrophy. Mild mitral valve regurgitation. Trace aortic valve regurgitation. There is mild tricuspid valve regurgitation. The estimated pulmonary arterial pressure is 30 mmHg. BP: / HR: Rhythm: MEASUREMENTS (Male / Female) Normal Values Technical Quality:Good 2D ECHO LV Diastolic Diameter PLAX 3.6 cm 4.2 - 5.9 / 3.9 - 5.3 cm LV Systolic Diameter PLAX 2.5 cm IVS Diastolic Thickness 2.0 cm 0.6 - 1.0 / 0.6 - 0.9 cm LVPW Diastolic Thickness 0.9 cm 0.6 - 1.0 / 0.6 - 0.9 cm LV Relative Wall Thickness 0.8 RV Internal Dim ED PLAX 2.8 cm M-MODE Aortic Root Diameter MM 3.1 cm LA Systolic Diameter MM 3.1 cm LA Ao Ratio MM 1.0 AV Cusp Separation MM 1.6 cm DOPPLER AI Peak Velocity 185.0 cm/s AI Peak Gradient 13.7 mmHg AI Pressure Half Time 750.0 ms Mitral E Point Velocity 40.5 cm/s Mitral A Point Velocity 93.3 cm/s Mitral E to A Ratio 0.4 LV E' Lateral Velocity 6.2 cm/s Mitral E to LV E' Lateral Ratio 6.5 LV E' Septal Velocity 6.7 cm/s Mitral E to LV E' Septal Ratio 6.0 TR Peak Velocity 223.0 cm/s TR Peak Gradient 19.9 mmHg Right Atrial Pressure 10.0 mmHg Pulmonary Artery Systolic Pressu 29.9 mmHg Right Ventricular Systolic Press 29.9 mmHg FINDINGS LEFT VENTRICLE Normal left ventricular size. The left ventricular systolic function is hyperdynamic with an estimated ejection fraction in the ra nge of 65- 70%. RIGHT VENTRICLE Normal right ventricular size and systolic function. LEFT ATRIUM The left atrial size is normal. RIGHT ATRIUM The right atrial size is normal. ATRIAL SEPTUM Normal atrial septal thickness without atrial level shunting by limited color doppler interrogation. AORTA The aortic root and proximal ascending aorta are normal in size on limited imaging. MITRAL VALVE Structurally normal mitral valve. Mild mitral valve regurgitation. AORTIC VALVE Trileaflet aortic valve. Trace aortic valve regurgitation. TRICUSPID VALVE Structurally normal tricuspid valve. There is mild tricuspid valve regurgitation. The estimated pulmonary arterial pressure is 29.9 mmHg. PULMONARY VALVE No pulmonary valve regurgitation or stenosis. VESSELS The inferior vena cava is normal in size. PERICARDIUM No pericardial effusion. Nikita Pringle MD, FACC (Electronically Signed) Final Date:01 August 2017 16:38
== END 2017-08-01 18:03 | disposition home or self-care (01) ==
LOC: PHED 16:25 → PHEDA 18:14 → PH3A 20:39
PROVIDERS: ADMIT Hospitalist; ATTEND Hospitalist
DX: G45.9 Transient cerebral ischemic attack, unspecified (principal); I10 Essential (primary) hypertension; G93.89 Other specified disorders of brain; R32 Unspecified urinary incontinence; E78.00 Pure hypercholesterolemia, unspecified; E03.9 Hypothyroidism, unspecified; G62.9 Polyneuropathy, unspecified; M48.00 Spinal stenosis, site unspecified; F32.9 Major depressive disorder, single episode, unspecified; F41.0 Panic disorder [episodic paroxysmal anxiety]; F40.240 Claustrophobia; M19.90 Unspecified osteoarthritis, unspecified site; Z96.643 Presence of artificial hip joint, bilateral; Z96.651 Presence of right artificial knee joint
CPT/HCPCS: 70450; 70551; 71010; 80053; 81001; 82550; 83735; 84484; 85025; 85610; 85730; 92610; 93005; 93306; 93880; 97162; 99285; G0378; G8987; G8988; G8996; G8997; G8998; J1650; J2060

== ENCOUNTER 2017-12-27 14:00 | Emergency (ER) | payer MEDICARE, BC ==
[~2017-12-27 14:00] MED LIST changes: +ASPI-516 CHEW; +ATOR40TA16 PO; +BRAN1000 PO; -ESTR.3 PO
[2017-12-27 14:23] VITALS: BP 140/76; PULSE 105; RESP 20; TEMP 97.2; O2SAT 95
--- NOTE | 2017-12-27 14:43 | PD ---
HPI Chief Complaint: Respiratory Symptoms Time Seen by Provider: 14:17 Travel History International Travel<30 days: No Contact w/Intl Traveler<30days: No Traveled to known affect area: No History of Present Illness HPI 72-year-old female says she was short of breath today. He was at home doing housework when it started. She still feels a little bit short of breath. She denies any history of lung disease. He does say she was feeling panicky. She thought she almost passed out. She did not have any chest pain. She has no history of hypertension or diabetes. She does admit that she is somewhat forgetful. She denies any fever or chills. She has not been coughing. She has no history of deep vein thrombosis or other blood clotting disorder. She was admitted to the hospital in July 2017. She says at that time she lost her speech for about 20 minutes. She was worked up for TIA. At that time Dr. terry also evaluated her. She says she had a nuclear stress test with him which she says put her at low risk. She does take a baby aspirin daily. She has never smoked. She says she still feels a little bit short of breath. She says she gets occasional ankle edema PFSH Past Medical History Arthritis: Yes Depression: Yes (OCASSIONAL) Cancer: No Cardiovascular Problems: No High Cholesterol: Yes Diabetes: No Diminished Hearing: No Endocrine: Yes Genitourinary: Yes (INCONTINENCE) Hepatitis: No Hiatal Hernia: No Hypertension: Yes Immune Disorder: No Implanted Vascular Access Dvce: Yes Musculoskeletal: Yes (ARTHRITIS, SP. STENOSIS) Neurologic: Yes (VERTIGO, neuropathy pain) Psychiatric: Yes (CLAUSTRAPHOBIA, PANIC ATTACKS) Reproductive: No Respiratory: No Immunizations Current: Yes Thyroid Disease: Yes (HYPOTHYROID) Menopausal: Yes Past Surgical History AICD: No Eye Surgery: Yes (RIGHT CATARACT EXT.) Genitourinary Surgery: Yes (FAILED BLADDER SUSP. (X2)) Gynecologic Surgery: Yes (HYSTERECTOMY) Hysterectomy: Yes (APPOX 20 YEARS AGO) Joint Replacement: Yes (bilat hip ) Oral Surgery: Yes (T & A) Pacemaker: No Tonsillectomy: Yes Tympanostomy Tube: Yes Other Surgery: Yes Social History Alcohol Use: Yes (occas. wine once a week) Tobacco Use: No Substance Use: No Allergies-Medications (Allergen,Severity, Reaction): Coded Allergies: adhesive (Unverified Allergy, Severe, SWELL AND BLISTER SKIN, 12/27/17) venom-honey bee (Unverified Allergy, Severe, 12/27/17) insect venom (Unverified Allergy, Intermediate, 12/27/17) Reported Meds & Prescriptions Reported Meds & Active Scripts Active Aspirin 81 Mg Chew 81 Mg CHEW DAILY 30 Days Reported Fiber 6 Tablet (Bran/Gum/Fib/Shilpi/Psyl/Kelp/Pec) 1,000 Mg Tablet 1 Tab PO DAILY Multiple Vitamin 1 Tab 1 Tab PO DAILY Vesicare (Solifenacin) 5 Mg Tab 5 Mg PO DAILY Namenda (Memantine) 5 Mg Tab 5 Mg PO BID Levothyroxine (Levothyroxine Sodium) 75 Mcg Tab 75 Mcg PO DAILY Gabapentin 300 Mg Cap 300 Mg PO HS Vitamin D3 (Cholecalciferol) 1,000 Unit Cap Unknown Dose PO DAILY Atorvastatin (Atorvastatin Calcium) 10 Mg Tab 10 Mg PO HS Review of Systems General / Constitutional: No: Fever, Chills Eyes: No: Diploplia, Blurred Vision HENT: No: Headaches, Vertigo Cardiovascular: No: Chest Pain or Discomfort, Palpitations Respiratory: Positive: Shortness of Breath, No: Cough Gastrointestinal: No: Vomiting, Diarrhea Genitourinary: No: Urgency, Frequency Musculoskeletal: No: Myalgias, Arthralgias Skin: No Rash, No Itching Neurologic: No: Weakness Endocrine: No: Heat Intolerance Hematologic/Lymphatic: No: Easy Bruising Physical Exam Narrative GENERAL: Well-developed female pulse rate is about 100 her O2 sat runs at 92-93% SKIN: Focused skin assessment warm/dry. HEAD: Atraumatic. Normocephalic. EYES: Pupils equal and round. No scleral icterus. No injection or drainage. ENT: No nasal bleeding or discharge. Mucous membranes pink and moist. NECK: Trachea midline. No JVD. CARDIOVASCULAR: Regular rate and rhythm. No murmur appreciated. RESPIRATORY: No accessory muscle use. Clear to auscultation. Breath sounds equal bilaterally. GASTROINTESTINAL: Abdomen soft, non-tender, nondistended. Hepatic and splenic margins not palpable. MUSCULOSKELETAL: No obvious deformities. No clubbing. No cyanosis. No edema. NEUROLOGICAL: Awake and alert. No obvious cranial nerve deficits. Motor grossly within normal limits. Normal speech. PSYCHIATRIC: Appropriate mood and affect; insight and judgment normal. Data Data Last Documented VS Vital Signs Date Time Temp Pulse Resp B/P (MAP) Pulse Ox O2 Delivery O2 Flow Rate FiO2 12/27/17 17:28 70 20 123/62 (82) 99 12/27/17 14:23 97.2 Orders Orders Electrocardiogram (12/27/17 14:37) Complete Blood Count With Diff (12/27/17 14:37) Comprehensive Metabolic Panel (12/27/17 14:37) Troponin I (12/27/17 14:37) B-Type Natriuretic Peptide (12/27/17 14:37) D-Dimer (12/27/17 14:37) Chest, Single Ap (12/27/17 14:37) Ct Pulmonary Angiogram (12/27/17 15:36) Iohexol 350 Inj (Omnipaque 350 Inj) (12/27/17 16:48) Ed Discharge Order (12/27/17 17:19) Labs Laboratory Tests Test 12/27/17 14:48 White Blood Count 6.6 TH/MM3 Red Blood Count 4.49 MIL/MM3 Hemoglobin 13.9 GM/DL Hematocrit 40.3 % Mean Corpuscular Volume 89.9 FL Mean Corpuscular Hemoglobin 31.0 PG Mean Corpuscular Hemoglobin Concent 34.5 % Red Cell Distribution Width 13.0 % Platelet Count 256 TH/MM3 Mean Platelet Volume 8.6 FL Neutrophils (%) (Auto) 73.2 % Lymphocytes (%) (Auto) 17.3 % Monocytes (%) (Auto) 6.2 % Eosinophils (%) (Auto) 2.9 % Basophils (%) (Auto) 0.4 % Neutrophils # (Auto) 4.9 TH/MM3 Lymphocytes # (Auto) 1.1 TH/MM3 Monocytes # (Auto) 0.4 TH/MM3 Eosinophils # (Auto) 0.2 TH/MM3 Basophils # (Auto) 0.0 TH/MM3 CBC Comment DIFF FINAL Differential Comment D-Dimer Quantitative (PE/DVT) 0.54 MG/L FEU Blood Urea Nitrogen 23 MG/DL Creatinine 0.79 MG/DL Random Glucose 157 MG/DL Total Protein 7.0 GM/DL Albumin 3.5 GM/DL Calcium Level 9.3 MG/DL Alkaline Phosphatase 67 U/L Aspartate Amino Transf (AST/SGOT) 20 U/L Alanine Aminotransferase (ALT/SGPT) 30 U/L Total Bilirubin 0.9 MG/DL Sodium Level 142 MEQ/L Potassium Level 3.7 MEQ/L Chloride Level 111 MEQ/L Carbon Dioxide Level 23.7 MEQ/L Anion Gap 7 MEQ/L Estimat Glomerular Filtration Rate 70 ML/MIN Troponin I LESS THAN 0.02 NG/ML B-Type Natriuretic Peptide 23 PG/ML MDM Medical Decision Making Medical Screen Exam Complete: Yes Emergency Medical Condition: Yes Medical Record Reviewed: Yes Differential Diagnosis Differential includes pneumonia, CHF, anxiety, PE Narrative Course Lab work and x-rays have been ordered. Disposition will be determined by oncoming physician Diagnosis Primary Impression: Dyspnea Kenneth Cardenas MD December 27, 2017 14:43
[2017-12-27 14:56] LABS: AUTOMATED NEUTROPHIL # 4.9 TH/MM3 (1.8-7.7); BASOPHIL % 0.4 % (0.0-2.0); EOSINOPHIL # 0.2 TH/MM3 (0-0.4); EOSINOPHIL % 2.9 % (0.0-4.0); HEMATOCRIT 40.3 % (35.0-46.0); HEMOGLOBIN 13.9 GM/DL (11.6-15.3); LYMPH % 17.3 % (9.0-44.0); LYMPHOCYTE # 1.1 TH/MM3 (1.0-4.8); MEAN CELL VOLUME 89.9 FL (80.0-100.0); MEAN CORPUSCULAR HGB CONC 34.5 % (32.0-36.0); MEAN PLATELET VOLUME 8.6 FL (7.0-11.0); MONO % 6.2 % (0.0-8.0); MONOCYTE # 0.4 TH/MM3 (0-0.9); NEUT % 73.2 % (16.0-70.0); PLATELET COUNT 256 TH/MM3 (150-450); RED BLOOD COUNT 4.49 MIL/MM3 (4.00-5.30); WHITE BLOOD COUNT 6.6 TH/MM3 (4.0-11.0)
--- NOTE | 2017-12-27 15:06 | RADRPT ---
EXAM DATE/TIME: 12/27/2017 14:48 [facility] COMPARISON: CHEST SINGLE AP, July 31, 2017, 16:50. INDICATIONS : Short of breath MEDICAL HISTORY : Arthritis. Hypertension. SURGICAL HISTORY : Hysterectomy. Bilateral hip replacement ENCOUNTER: Initial ACUITY: 1 day PAIN SCORE: 0/10 LOCATION: chest FINDINGS: A single view of the chest demonstrates the lungs to be symmetrically aerated without evidence of mas s, infiltrate or effusion. The cardiomediastinal contours are unremarkable. Osseous structures are intact. CONCLUSION: No acute disease. Julian Morfin MD FACR on December 27, 2017 at 15:04 Board Certified Radiologist. This report was verified electronically.
[2017-12-27 15:19] LABS: CHLORIDE 111 MEQ/L (98-107); SODIUM (NA) 142 MEQ/L (136-145)
[2017-12-27 15:23] LABS: ALBUMIN 3.5 GM/DL (3.4-5.0); BICARBONATE 23.7 MEQ/L (21.0-32.0); BLOOD UREA NITROGEN 23 MG/DL (7-18); CALCIUM 9.3 MG/DL (8.5-10.1); GLUCOSE,RANDOM 157 MG/DL (74-106)
[2017-12-27 15:26] LABS: ALT (GPT) 30 U/L (10-53); AST (GOT) 20 U/L (15-37); CREATININE 0.79 MG/DL (0.50-1.00); GLOMERULAR FILTRATION RATE 70 ML/MIN (>89)
[2017-12-27 15:28] LABS: TOTAL BILIRUBIN ADULT 0.9 MG/DL (0.2-1.0)
[2017-12-27 15:29] LABS: ALKALINE PHOSPHATASE 67 U/L (45-117)
[2017-12-27 15:31] LABS: TROPONIN I LESS THAN 0.02 NG/ML (0.02-0.05)
[2017-12-27 15:41] VITALS: BP 123/62; O2SAT 92
--- NOTE | 2017-12-27 15:52 | PD ---
Physical Exam Date Seen by Provider: December 27, 2017 Narrative Care was assumed at 3 PM pending evaluation for dyspnea. The patient states that she is currently not short of breath. Data Data Last Documented VS Vital Signs Date Time Temp Pulse Resp B/P (MAP) Pulse Ox O2 Delivery O2 Flow Rate FiO2 12/27/17 15:41 83 20 123/62 (82) 92 12/27/17 14:23 97.2 Orders Orders Electrocardiogram (12/27/17 14:37) Complete Blood Count With Diff (12/27/17 14:37) Comprehensive Metabolic Panel (12/27/17 14:37) Troponin I (12/27/17 14:37) B-Type Natriuretic Peptide (12/27/17 14:37) D-Dimer (12/27/17 14:37) Chest, Single Ap (12/27/17 14:37) Ct Pulmonary Angiogram (12/27/17 15:36) Iohexol 350 Inj (Omnipaque 350 Inj) (12/27/17 16:48) Labs Laboratory Tests Test 12/27/17 14:48 White Blood Count 6.6 TH/MM3 Red Blood Count 4.49 MIL/MM3 Hemoglobin 13.9 GM/DL Hematocrit 40.3 % Mean Corpuscular Volume 89.9 FL Mean Corpuscular Hemoglobin 31.0 PG Mean Corpuscular Hemoglobin Concent 34.5 % Red Cell Distribution Width 13.0 % Platelet Count 256 TH/MM3 Mean Platelet Volume 8.6 FL Neutrophils (%) (Auto) 73.2 % Lymphocytes (%) (Auto) 17.3 % Monocytes (%) (Auto) 6.2 % Eosinophils (%) (Auto) 2.9 % Basophils (%) (Auto) 0.4 % Neutrophils # (Auto) 4.9 TH/MM3 Lymphocytes # (Auto) 1.1 TH/MM3 Monocytes # (Auto) 0.4 TH/MM3 Eosinophils # (Auto) 0.2 TH/MM3 Basophils # (Auto) 0.0 TH/MM3 CBC Comment DIFF FINAL Differential Comment D-Dimer Quantitative (PE/DVT) 0.54 MG/L FEU Blood Urea Nitrogen 23 MG/DL Creatinine 0.79 MG/DL Random Glucose 157 MG/DL Total Protein 7.0 GM/DL Albumin 3.5 GM/DL Calcium Level 9.3 MG/DL Alkaline Phosphatase 67 U/L Aspartate Amino Transf (AST/SGOT) 20 U/L Alanine Aminotransferase (ALT/SGPT) 30 U/L Total Bilirubin 0.9 MG/DL Sodium Level 142 MEQ/L Potassium Level 3.7 MEQ/L Chloride Level 111 MEQ/L Carbon Dioxide Level 23.7 MEQ/L Anion Gap 7 MEQ/L Estimat Glomerular Filtration Rate 70 ML/MIN Troponin I LESS THAN 0.02 NG/ML B-Type Natriuretic Peptide 23 PG/ML MDM Supervised Visit with DENNY: No Narrative Course CBC & BMP Diagram 12/27/17 14:48 Total Protein 7.0, Albumin 3.5, Calcium Level 9.3, Alkaline Phosphatase 67, Aspartate Amino Transf (AST/SGOT) 20, Alanine Aminotransferase (ALT/SGPT) 30, Total Bilirubin 0.9 BNP 23. Troponin less than 0.02. D-dimer 0.54. CT for PE has now been ordered. Last Impressions CT Angiography 12/27/17 1536 Signed Impressions: Service Date/Time: Wednesday, December 27, 2017 16:31 - CONCLUSION: Negative for central pulmonary emboli Moderate coronary calcifications Julian Morfin MD FACR Chest X-Ray 12/27/17 1437 Signed Impressions: Service Date/Time: Wednesday, December 27, 2017 14:48 - CONCLUSION: No acute disease. Julian Morfin MD FACR The patient will now be discharged home Diagnosis Primary Impression: Dyspnea Qualified Codes: R06.00 - Dyspnea, unspecified Patient Instructions: Dyspnea (DC), General Instructions Disposition: 01 DISCHARGE HOME Condition: Stable Tasha Batista MD December 27, 2017 15:52
[2017-12-27] MEDS ORDERED: IOHEXOL 350 MG/ML 10 ML VIAL (for RAD DIAG) IVCONTRAST ONE (16:48)
--- NOTE | 2017-12-27 17:10 | RADRPT ---
EXAM DATE/TIME: 12/27/2017 16:31 [facility] COMPARISON: No previous studies available for comparison. INDICATIONS : Shortness of breath.Right chest and arm pain. IV CONTRAST: 75 cc Omnipaque 350 (iohexol) IV RADIATION DOSE: 11.13 CTDIvol (mGy) MEDICAL HISTORY : Hypertension. SURGICAL HISTORY : None. ENCOUNTER: Initial ACUITY: 1 day PAIN SCALE: 9/10 LOCATION: Right chest TECHNIQUE: Volumetric scanning of the chest was performed using a pulmonary embolism protocol MIP images were re constructed. Using automated exposure control and adjustment of the mA and/or kV according to patien t size, radiation dose was kept as low as reasonably achievable to obtain optimal diagnostic quality images. DICOM format image data is available electronically for review and comparison. Follow-up recommendations for detected pulmonary nodules are based at a minimum on nodule size and pa tient risk factors according to Fleischner Society Guidelines. FINDINGS: There are no suspicious lung lesions identified. There is no axillary adenopathy. There is no mediastinal adenopathy. There is no evidence for centr al pulmonary emboli. Moderate coronary calcifications are noted There is no pericardial effusion 1.5 cm cyst right lobe of the liver. CONCLUSION: Negative for central pulmonary emboli Moderate coronary calcifications Julian Morfin MD FACR on December 27, 2017 at 17:06 Board Certified Radiologist. This report was verified electronically.
[2017-12-27 17:28] VITALS: BP 123/62
--- NOTE | 2017-12-28 19:58 | EKG ---
Date Performed: 12/27/2017 Time Performed: 14:29:58 PTAGE: 82 years EKG: Sinus rhythm POSSIBLE INFERIOR MYOCARDIAL INFARCTION BORDERLINE ECG Since the PREVIOUS TRACING , no significant change noted PREVIOUS TRACIN07/31/2017 16.57 DOCTOR: Adiel Noble Interpretating Date/Time 12/28/2017 19:56:36
== END 2017-12-27 17:38 | disposition home or self-care (01) ==
LOC: PHED 14:00
DX: R06.00 Dyspnea, unspecified (principal); R06.02 Shortness of breath; M19.90 Unspecified osteoarthritis, unspecified site; F32.9 Major depressive disorder, single episode, unspecified; E78.00 Pure hypercholesterolemia, unspecified; I10 Essential (primary) hypertension; F40.240 Claustrophobia; F41.0 Panic disorder [episodic paroxysmal anxiety]; E03.9 Hypothyroidism, unspecified
CPT/HCPCS: 71045; 71275; 80053; 83880; 84484; 85025; 85379; 93005; 99285; Q9967